=== PATIENT | male | born 1950 | race Two or more races ===

== ENCOUNTER 2025-02-24 11:13 | Outpatient (CLI) | payer OTHER ==
--- NOTE | 2025-02-24 19:07 | CARDIOLOGY REPORT ---
APPROVED REPORT EXAM: Comprehensive 2D, Doppler, and color-flow Echocardiogram. Patient Location: OUT-PATIENT Heart Rate: 47 bpm Rhythm: SINUS BRADYCARDIA w/BBB Indications CORONARY ARTERY DISEASE Carbonation Equipment Operator: Nish Silver MD Previous echo: none available 2D Dimensions LA Diam5.6 cm IVSd 1.2 (0.7-1.1cm) LVDd 4.7 cm PWd 1.2 (0.7-1.1cm) IVSs 1.5 (0.8-1.2cm) LVDs 3.8 (2.5-4.0cm) PWs 1.4 (0.8-1.2cm) LVOT Diameter 2.11 (1.8-2.4cm) LVEF(%) 41.3 (>50%) Ao Asc Diam.3.75 cm FS (%) 20.2 % SV 43.3 ml CO 2.1 L/min M-Mode Dimensions Left Atrium(MM) 4.87 (2.5-4.0cm) Aortic Root 3.44 (2.2-3.7cm) Aortic Cusp Exc 1.79 (1.5-2.0cm) MV EPSS 1.1 (<0.5cm) Biplane 2D LA Volumes LA ESV Index 30.47 mL/m2 Aortic Valve AoV Peak Brennon. 206.5 cm/s AoV VTI 44.7 cm AO Peak GR. 17.1 mmHg AO Mean GR. 8 mmHg LVOT VTI 24.06 cm LVOT Peak Brennon. 105.8 cm/s TALI(VTI)/BSA 2.02 cm2/m2 TALI (VTI) 2.02 cm2 Mitral Valve MV E Velocity 70.2 cm/s MV Peak Gr. 3 mmHg MV DECEL TIME 224 ms MV A Velocity 69.8 cm/s MV PHT 72 ms E/A Ratio 1.0 MVA (PHT) 3.06 cm2 MV VMax86.7 cm/s TDI Medial E' P. V 7.11 cm/s E/Medial E' 9.9 Tricuspid Valve TR P. Velocity 208 cm/s TR Peak Gr. 17 mmHg Pulmonary Vein S1 Velocity 49.5 cm/s D2 Velocity 63.2 cm/s PVa Jsdaayjh56.8 cm/s PVa [id number] msec LEFT VENTRICLE Normal LV size and moderately reduced function. Mild concentric hypertrophy. LVEF is 40-45%. RIGHT VENTRICLE RV size and function appear grossly normal. ATRIA Left atrium is mildly dilated. RA size appears normal. Mobile interatrial septum - no flow detected. AORTIC VALVE Trileaflet AV appears mildly sclerotic without significant stenosis. Trace insufficiency. MITRAL VALVE Mild MV annular calcification and leaflet thickening without stenosis. Mild regurgitation. TRICUSPID VALVE TV appears structurally normal with mild regurgitation. PULMONIC VALVE Normal PV without stenosis, physiologic insufficiency. GREAT VESSELS Aortic root is normal in size. Ascending aorta is dilated. PERICARDIUM Normal pericardium. No effusion. Other Information Study Quality: Adequate Conclusion Normal LV size and moderately reduced function. Mild concentric hypertrophy. LVEF is 40-45%. RV size and function appear grossly normal. Left atrium is mildly dilated. RA size appears normal. Mobile interatrial septum - no flow detected. Trileaflet AV appears mildly sclerotic without significant stenosis. Trace insufficiency. Mild MV annular calcification and leaflet thickening without stenosis. Mild regurgitation. TV appears structurally normal with mild regurgitation. Normal pericardium. No effusion.
== END 2025-02-24 23:59 | disposition home or self-care (01) ==
LOC: RAD 11:13
PROVIDERS: ATTEND Chiropractor
DX: I08.3 Combined rheumatic disorders of mitral, aortic and tricuspid valves (principal); I25.10 Atherosclerotic heart disease of native coronary artery without angina pectoris
CPT/HCPCS: 93306